=== PATIENT | male | born 1995 | race Caucasian/White ===

== ENCOUNTER 2016-11-25 18:13 | Emergency (ER) | payer SELFPAY ==
[~2016-11-25] VITALS: Ht 175.3 cm; Wt 61.2 kg
[2016-11-25] MEDS ORDERED: Haloperidol 5mg/ml Inj IM ONE (18:30)
[2016-11-25] MEDS ORDERED: DiphenhydrAMINE 50mg/ml Inj IM ONE (18:30)
[2016-11-25 19:00] VITALS: BP 115/69
--- NOTE | 2016-11-25 20:53 | Emergency Room Report ---
History of Present Illness General Chief Complaint: Altered Mental Status Source: EMS (Tika Ann) Present Illness HPI 21-year-old male presents to the emergency department brought by EMS and escorted by [employer] in handcuffs. Patient was demonstrating suicidal behavior by attempting to jump from fifth floor of an apartment complex [facility]. PD was called from bystander. Patient is uncooperative and does not provide answers to history of present illness or ROS questions. Patient is alert and not in any acute distress other than being easily agitated. (Tika Ann) Allergies: Coded Allergies: UNABLE TO ASSESS (Unverified , 11/25/16) Patient History Past Medical History: see triage record Past Surgical History: unable to obtain Pertinent Family History: unable to obtain Reviewed Nursing Documentation: PMH: Agreed, PSxH: Agreed (Tika Ann) Nursing Documentation-PMH Past Medical History: Deferred (Tika Ann) Review of Systems All Other Systems: limited - Pt. refuses to cooperate verbally (Tika Ann) Physical Exam Vital Signs Date Time Temp Pulse Resp B/P (MAP) Pulse Ox O2 Delivery O2 Flow Rate FiO2 11/25/16 18:15 97.3 95 16 104/72 99 Room Air Sp02 EP Interpretation: reviewed, normal General Appearance: alert, GCS 15, non-toxic, mild distress - pt. anxious, and intermittently agitated, other - disheveled, poor hygiene Head: normocephalic, atraumatic Eyes: bilateral eye normal inspection, bilateral eye PERRL ENT: hearing grossly normal, normal pharynx, no angioedema, normal voice Neck: full range of motion, no bony tend, supple/symm/no masses Respiratory: lungs clear, normal breath sounds, speaking full sentences Cardiovascular #1: regular rate, rhythm, no edema, normal capillary refill Gastrointestinal: normal bowel sounds, non tender, soft, no guarding, no rebound Rectal: deferred Musculoskeletal: back normal, gait/station normal, normal range of motion, non- tender, no calf tenderness Neurologic: alert, oriented x3, responsive, motor strength/tone normal, sensory intact, speech normal Psychiatric: other - Pt is hyperactive, and has a very anxious and restless affect, mumbles to himself, does not cooperate with exam or obtaining medical history. pt. is disheveled, and easily agitated. Skin: normal color, no rash, warm/dry, well hydrated (Tika Ann) Medical Decision Making PA Attestation Dr. tran is my supervising Physician whom patient management has been discussed with. (Tika Ann) Diagnostic Impression: Primary Impression: Behavioral change Additional Impression: Suicidal behavior Qualified Codes: T14.91 - Suicide attempt ER Course 21-year-old male presents to the emergency department brought by EMS and escorted by [employer] in handcuffs. Patient was demonstrating suicidal behavior by attempting to jump from fifth floor of an apartment complex [facility]. PD was called from bystander. Patient is uncooperative and does not provide answers to history of present illness or ROS questions. Patient is alert and not in any acute distress other than being easily agitated. Pt is hyperactive, and has a very anxious and restless affect, mumbles to himself, does not cooperate with exam or obtaining medical history. pt. is disheveled, and easily agitated. Ddx considered but are not limited to OD, SI/HI, psychosis, UTI, intoxication Vital signs: are WNL, pt. is afebrile H&PE are most consistent with behavioral/mental health issue- demonstrated danger to self and possible suicidal behavior to [employer]. ORDERS: -CBC, CMP- Unremarkable/ WNL -UA: unremarkable no evidence of infection. -UDS: Pending -Salicylates and Acetaminophen - no acute intoxication. -PET TEAM EVAL: pt. was placed on Hold by [employer], however documentation was filled out incorrectly and therefore legally is in-valid. ED INTERVENTIONS: -Pt was placed into behavioral restraints following removal of handcuffs by [employer] - pt. was exhibiting aggression and danger to self and staff. -5mg Haldol IM -50mg Benadryl IM -2mb Ativan IM DISPOSITION: Awaiting PET eval and valid hold placement if deemed appropriate by PET Team. Pt. is signed out to Dr. Mcbride. Labs Test 11/25/16 20:39 11/25/16 21:40 White Blood Count 8.6 K/UL (4.8-10.8) Red Blood Count 4.72 M/UL (4.70-6.10) Hemoglobin 15.6 G/DL (14.2-18.0) Hematocrit 44.2 % (42.0-52.0) Mean Corpuscular Volume 94 FL (80-99) Mean Corpuscular Hemoglobin 33.0 PG (27.0-31.0) Mean Corpuscular Hemoglobin Concent 35.3 G/DL (32.0-36.0) Red Cell Distribution Width 14.4 % (11.6-14.8) Platelet Count 321 K/UL (150-450) Mean Platelet Volume 6.5 FL (6.5-10.1) Neutrophils (%) (Auto) 74.5 % (45.0-75.0) Lymphocytes (%) (Auto) 13.9 % (20.0-45.0) Monocytes (%) (Auto) 9.2 % (1.0-10.0) Eosinophils (%) (Auto) 0.9 % (0.0-3.0) Basophils (%) (Auto) 1.4 % (0.0-2.0) Sodium Level 136 mEQ/L (135-145) Potassium Level 4.0 mEQ/L (3.4-4.9) Chloride Level 97 mEQ/L (98-107) Carbon Dioxide Level 27 mEQ/L (20-30) Anion Gap 12 (5-15) Blood Urea Nitrogen 17 mg/dL (7-23) Creatinine 1.0 mg/dL (0.7-1.2) Estimat Glomerular Filtration Rate > 60 mL/min (>60) Glucose Level 105 mg/dL (74-106) Calcium Level 9.3 mg/dL (8.6-10.2) Total Bilirubin 1.2 mg/dL (0.0-1.2) Direct Bilirubin 0.3 mg/dL (0.1-0.3) Aspartate Amino Transf (AST/SGOT) 46 U/L (5-40) Alanine Aminotransferase (ALT/SGPT) 39 U/L (3-41) Alkaline Phosphatase 62 U/L (40-129) Total Protein 7.5 g/dL (6.6-8.7) Albumin 4.1 g/dL (3.5-5.2) Globulin 3.4 g/dL Albumin/Globulin Ratio 1.2 (1.0-2.7) Salicylates Level < 1 mg/dL (10-30) Acetaminophen Level < 10 ug/mL (10-30) Serum Alcohol < 10 mg/dL Urine Color Yellow Urine Appearance Clear Urine pH 6 (4.5-8.0) Urine Specific [place] 1.025 (1.005-1.035) Urine Protein Negative (NEGATIVE) Urine Glucose (UA) Negative (NEGATIVE) Urine Ketones 1+ (NEGATIVE) Urine Occult Blood Negative (NEGATIVE) Urine Nitrite Negative (NEGATIVE) Urine Bilirubin Negative (NEGATIVE) Urine Urobilinogen Normal MG/DL (0.0-1.0) Urine Leukocyte Esterase 1+ (NEGATIVE) Urine RBC 0-2 /HPF (0 - 0) Urine WBC 2-4 /HPF (0 - 0) Urine Squamous Epithelial Cells None /LPF (NONE/OCC) Urine Bacteria None /HPF (NONE) (Tika Ann.Brandie) ER Course Contrary to Dr Eaton's note, patient NOT on 5150 because form filled out by [employer] is invalid. PET team NOT called In morning on reassessment, patient alert and oriented. Calm and cooperative Not professing SI, HI, AVH Asking for food/drink which was provided Initial behavior change likely d/t polysubstance abuse DC home (DECLAN MCBRIDE M.D.) Last Vital Signs Date Time Temp Pulse Resp B/P (MAP) Pulse Ox O2 Delivery O2 Flow Rate FiO2 11/25/16 18:15 97.3 95 16 104/72 99 Room Air (Tika Ann) Status: improved (DECLAN MCBRIDE M.D.) Disposition: HOME, SELF-CARE Condition: Stable Signed Out To: Dr. Mcbride (Tika Ann PNevin) Referrals: NOT CHOSEN NENITA/,REFERRING (PCP) Tika Ann Nov 25, 2016 20:53 DECLAN MCBRIDE M.D. Nov 26, 2016 05:57
[2016-11-25 20:59] LABS: BASOPHILS % (AUTO) 1.4 % (0.0-2.0); EOSINOPHILS % (AUTO) 0.9 % (0.0-3.0); LYMPHOCYTES % (AUTO) 13.9 % (20.0-45.0); MEAN CORPUSCULAR HGB CONC 35.3 G/DL (32.0-36.0); MEAN CORPUSCULAR VOLUME 94 FL (80-99); MEAN PLATELET VOLUME 6.5 FL (6.5-10.1); MONOCYTES % (AUTO) 9.2 % (1.0-10.0); NEUTROPHILS % (AUTO) 74.5 % (45.0-75.0); PLATELET COUNT 321 K/UL (150-450); RED BLOOD COUNT 4.72 M/UL (4.70-6.10); RED CELL DISTRIBUTION WIDTH 14.4 % (11.6-14.8); WHITE BLOOD COUNT 8.6 K/UL (4.8-10.8)
[2016-11-25] MEDS ORDERED: LORazepam Inj 2mg/ml 1ml IM ONE (21:00)
[2016-11-25 21:09] LABS: ACETAMINOPHEN < 10 ug/mL (10-30); ALANINE AMINOTRANSFERASE 39 U/L (3-41); ALBUMIN/GLOBULIN RATIO 1.2 (1.0-2.7); ALCOHOL < 10 mg/dL; ANION GAP 12 (5-15); ASPARTATE AMINO TRANSFERASE 46 U/L (5-40); CALCIUM 9.3 mg/dL (8.6-10.2); CARBON DIOXIDE 27 mEQ/L (20-30); CHLORIDE 97 mEQ/L (98-107); GLOMERULAR FILTRATION RATE > 60 mL/min (>60); HEMOLYSIS 10; SODIUM 136 mEQ/L (135-145); TOTAL PROTEIN 7.5 g/dL (6.6-8.7)
[2016-11-25 21:38] LABS: BILIRUBIN,DIRECT 0.3 mg/dL (0.1-0.3)
[2016-11-25 22:14] LABS: APPEARANCE,URINE CLEAR; KETONES,URINE 1+ (NEGATIVE); LEUKOCYTE ESTERASE ,URINE 1+ (NEGATIVE); NITRITE,URINE NEGATIVE (NEGATIVE); PH,URINE 6 (4.5-8.0); PROTEIN,URINE NEGATIVE (NEGATIVE); UROBILINOGEN,URINE NORMAL MG/DL (0.0-1.0)
[2016-11-25 22:22] LABS: RBC,URINE 0-2 /HPF (0 - 0)
[2016-11-26 00:05] VITALS: BP 120/84
[2016-11-26 06:45] VITALS: BP 112/72
[2016-11-26 06:59] VITALS: BP 112/72
== END 2016-11-26 06:59 | disposition home or self-care (01) ==
LOC: EDBD 18:13 → EMR 18:20
DX: T14.91 Suicide attempt (principal); F68.8 Other specified disorders of adult personality and behavior; X83.8XXA Intentional self-harm by other specified means, initial encounter; Y93.9 Activity, unspecified; Y92.039 Unspecified place in apartment as the place of occurrence of the external cause
CPT/HCPCS: 36415; 80053; 80300; 81003; 82248; 85025; 96372; 99284; G0480; J1200; J1630; 80329